=== PATIENT | male | born 1955 | race Caucasian/White ===

== ENCOUNTER 2022-09-22 07:12 | Emergency (ER) | payer OTHER ==
[~2022-09-22] VITALS: Ht 187.9 cm; Wt 83.5 kg
[2022-09-22 07:42] LABS: BILIRUBIN Negative (Negative); BLOOD Negative (Negative); CLARITY Cloudy (Clear); COLOR Yellow (Yellow); GLUCOSE Negative (Negative); KETONE Trace (Negative); LEUKO ESTERASE Negative (Negative); NITRITE Negative (Negative)
[2022-09-22 07:54] LABS: BASO % 0.4 % (0.0-1.0); EOS # 0.1 10*3/uL (0.0-0.4); EOS % 0.6 % (1.0-4.0); HEMATOCRIT 45.3 % (42.0-52.0); LYMPH % 12.4 % (27.0-41.0); MEAN CELL VOLUME 92.8 fl (80.0-94.0); MEAN CORPUSCULAR HGB 30.9 pg (27.0-31.0); MEAN CORPUSCULAR HGB CONC 33.3 g/dl (33.0-37.0); MEAN PLATELET VOLUME 9.7 fl (9.6-12.3); MONO # 0.6 10*3/uL (0.1-1.0); MONO % 6.7 % (3.0-9.0); NEUT # 6.6 10*3/uL (2.3-7.9); NEUT % 79.5 % (47.0-73.0); PLATELET COUNT AUTOMATED 232 10*3/uL (130-400); RED BLOOD COUNT 4.88 10*6/uL (4.50-5.90); RED CELL DISTRI WIDTH 13.1 % (0-14.5); WHITE BLOOD COUNT 8.2 10*3/uL (4.8-10.8)
[2022-09-22 07:56] LABS: MUCOUS 3+; RBC 0-2 rbc/hpf (0-2)
[2022-09-22 08:16] LABS: ALKALINE PHOSPHATASE 64 U/L (46-116); BUN 10 mg/dl (9-23); CHLORIDE 107 mmol/L (98-107); LIPASE 39 U/L (12-53); SGPT/ALT 15 U/L (10-49); TOTAL PROTEIN 7.3 gm/dL (6.0-8.0)
[2022-09-22 10:38] VITALS: BP 127/78
[2022-09-22] MEDS ORDERED: DICYCLOMINE HCL10 MG PO (10:44)
[2022-09-22] MEDS ORDERED: CIPRO500 MG PO (10:44)
[2022-09-22] MEDS ORDERED: ONDANSETRON4 MG SL (10:44)
== END 2022-09-22 10:58 | disposition home or self-care (01) ==
LOC: ED 07:12
PROVIDERS: Emergency Medicine
DX: K52.9 Noninfective gastroenteritis and colitis, unspecified (principal); K57.32 Diverticulitis of large intestine without perforation or abscess without bleeding

== ENCOUNTER 2023-10-29 10:46 | Emergency (ER) | payer OTHER ==
[~2023-10-29] VITALS: Ht 187.9 cm; Wt 80.7 kg
[~2023-10-29 10:46] MED LIST: CIPRO500 MG PO; DICYCLOMINE HCL10 MG PO; ONDANSETRON4 MG SL
[2023-10-29] MEDS ORDERED: MORPHINE Sulfate 2 MG/ML SYR IV ONE ×2 (11:15→12:55)
[2023-10-29] MEDS ORDERED: SODIUM CHLORIDE 0.9% 1,000 ML IV ONE (11:15)
[2023-10-29] MEDS ORDERED: Ondansetron Hydrochloride 4 MG/2 ML VIAL IV ONE (11:15)
[2023-10-29] MEDS ORDERED: IOHEXOL 300 MG/ML 100 ML VIAL IV ONE (11:20)
[2023-10-29 11:27] LABS: BASO % 0.4 % (0.0-1.0); EOS % 0.3 % (1.0-4.0); HEMATOCRIT 41.3 % (42.0-52.0); LYMPH # 1.1 10*3/uL (1.3-4.4); LYMPH % 13.8 % (27.0-41.0); MEAN CELL VOLUME 93.2 fl (80.0-94.0); MEAN CORPUSCULAR HGB CONC 32.2 g/dl (33.0-37.0); MEAN PLATELET VOLUME 8.9 fl (9.6-12.3); MONO # 0.5 10*3/uL (0.1-1.0); MONO % 6.1 % (3.0-9.0); NEUT # 6.1 10*3/uL (2.3-7.9); NEUT % 79.1 % (47.0-73.0); PLATELET COUNT AUTOMATED 254 10*3/uL (130-400); RED BLOOD COUNT 4.43 10*6/uL (4.50-5.90); RED CELL DISTRI WIDTH 12.7 % (0-14.5); WHITE BLOOD COUNT 7.7 10*3/uL (4.8-10.8)
[2023-10-29 11:51] LABS: BILIRUBIN Negative (Negative); BLOOD Negative (Negative); CLARITY Clear (Clear); COLOR Yellow (Yellow); GLUCOSE Negative (Negative); KETONE 1+ (Negative); LEUKO ESTERASE Negative (Negative); NITRITE Negative (Negative); PH 5.5 (4.5-8.0); UROBILINOGEN 0.2 E.U./dl (0.0-1.0)
[2023-10-29 12:05] LABS: BUN 11 mg/dl (9-23); CHLORIDE 105 mmol/L (98-107); LIPASE 33 U/L (12-53); POTASSIUM 3.8 mmol/L (3.4-5.1); SGPT/ALT 13 U/L (5-49)
[2023-10-29 12:10] LABS: RBC 0-2 rbc/hpf (0-2); WBC 0-2 wbc/hpf (0-5)
[2023-10-29 14:30] VITALS: BP 146/82
[2023-10-29] MEDS ORDERED: CIPRO250 MG PO (15:43)
[2023-10-29] MEDS ORDERED: HYDROCODONE-AC1 EAC1 PO (15:43)
== END 2023-10-29 16:00 | disposition home or self-care (01) ==
LOC: ED 10:46
PROVIDERS: Nurse Practitioner Family
DX: R10.31 Right lower quadrant pain (principal); R10.32 Left lower quadrant pain; R11.0 Nausea

== ENCOUNTER 2024-12-03 16:53 | Emergency (ER) | payer OTHER ==
[~2024-12-03 16:53] MED LIST changes: +CIPRO250 MG PO; +HYDROCODONE-AC1 EAC1 PO
[2024-12-03] MEDS ORDERED: Midazolam Hydrochloride 2 MG/2 ML VIAL IV ONE ×2 (17:05→17:50)
[2024-12-03 19:11] LABS: BILIRUBIN Negative (Negative); BLOOD Negative (Negative); CLARITY Clear (Clear); COLOR Yellow (Yellow); KETONE Trace (Negative); LEUKO ESTERASE Negative (Negative); NITRITE Negative (Negative); PH 5.5 (4.5-8.0); SPECIFIC GRAVITY 1.010 (1.001-1.030); UROBILINOGEN 0.2 E.U./dl (0.0-1.0)
[2024-12-03 19:18] LABS: URINE AMPHETAMINES Negative (1000ng/ml); URINE BARBITURATES Negative (200ng/ml); URINE BENZODIAZEPINES Positive (200ng/ml); URINE CANNABINOIDS (THC) Negative (50ng/ml); URINE COCAINE Negative (300ng/ml); URINE METHADONE Negative (300ng/ml); URINE OPIATES Positive (300ng/ml); URINE PHENCYCLIDINE Negative (25ng/ml)
[2024-12-03 19:22] LABS: BACTERIA TRACE; EPITHELIAL CELLS 0-2
[2024-12-03] MEDS ORDERED: Ondansetron Hydrochloride 4 MG/2 ML VIAL IV ONE (19:45)
[2024-12-03 20:24] VITALS: BP 151/79
== END 2024-12-03 20:37 | disposition home or self-care (01) ==
LOC: ED 16:53
PROVIDERS: Internal Medicine
DX: S09.90XA Unspecified injury of head, initial encounter (principal); K21.9 Gastro-esophageal reflux disease without esophagitis; Z79.899 Other long term (current) drug therapy; W10.8XXA Fall (on) (from) other stairs and steps, initial encounter; Y93.89 Activity, other specified; Y92.89 Other specified places as the place of occurrence of the external cause; Y99.8 Other external cause status

== ENCOUNTER 2024-12-06 14:20 | Emergency (ER) | payer OTHER ==
[~2024-12-06] VITALS: Ht 187.9 cm; Wt 84.4 kg
[2024-12-06 14:20] VITALS: BP 148/90
[2024-12-06 14:43] LABS: BASO # 0.1 10*3/uL (0.0-0.1); BASO % 0.9 % (0.0-1.0); EOS # 0.1 10*3/uL (0.0-0.4); EOS % 2.2 % (1.0-4.0); MEAN CELL VOLUME 92.7 fl (80.0-94.0); MEAN CORPUSCULAR HGB 29.3 pg (27.0-31.0); MEAN PLATELET VOLUME 9.2 fl (9.6-12.3); MONO # 0.5 10*3/uL (0.1-1.0); MONO % 9.3 % (3.0-9.0); NEUT # 3.4 10*3/uL (2.3-7.9); NEUT % 61.1 % (47.0-73.0); NUCLEATED RED BLOOD CELL 0.0 % (0.0-0.0); NUCLEATED RED BLOOD CELL 0.0 10*3/uL (0.0-0.0); PLATELET COUNT AUTOMATED 251 10*3/uL (130-400); RED CELL DISTRI WIDTH 13.5 % (0-14.5)
[2024-12-06 14:56] LABS: ACT PARTIAL THROMBO TIME 27.6 SECONDS (20.0-32.1)
[2024-12-06 15:41] LABS: BUN 13 mg/dl (9-23); SGPT/ALT 12 U/L (5-49)
[2024-12-06] MEDS ORDERED: Ondansetron Hydrochloride 4 MG/2 ML VIAL IV ONE (16:15)
[2024-12-06] MEDS ORDERED: diphenhydrAMINE hydrochloride 50 MG/ML VIAL IV ONE (16:15)
[2024-12-06] MEDS ORDERED: Dexamethasone Sodium Phospha 20 MG/5 ML VIAL IV ONE (16:55)
== END 2024-12-06 18:16 | disposition home or self-care (01) ==
LOC: ED 14:20
PROVIDERS: Internal Medicine
DX: R07.89 Other chest pain (principal); R51.9 Headache, unspecified; I10 Essential (primary) hypertension; Z79.899 Other long term (current) drug therapy